=== PATIENT | female | born 1950 | race Caucasian/White ===

== ENCOUNTER 2016-07-07 10:51 | Day surgery (SDC) | payer OTHER ==
[2016-07-07] VITALS (15 sets, daily range): BP systolic 119–150; BP diastolic 81–114; PULSE 70–148; TEMP 97.9
[~2016-07-07] VITALS: Ht 157.5 cm; Wt 63.0 kg
[2016-07-07] MEDS ORDERED: PRIL40 PO (11:51)
[2016-07-07] MEDS ORDERED: PROBIOTIC FORMU1 CAP PO (11:52)
[2016-07-07] MEDS ORDERED: MULTI VITAMINS1 TAB PO (11:52)
[2016-07-07] MEDS ORDERED: CARTIA XT180 MG PO (11:53)
[2016-07-07] MEDS ORDERED: FIBER0.52 GM PO (11:55)
[2016-07-07] MEDS ORDERED: LASIX 40MG TABL40 MG PO (11:56)
[2016-07-07 12:20] LABS: POTASSIUM 4.7 mmol/L (3.4-5.0)
[2016-07-07 12:33] LABS: THYROID STIMULATING HORMONE 1.67 uIU/mL (0.465-4.680)
[2016-07-07] MEDS ORDERED: PRADAXA 150MG150 MG PO (15:09)
[2016-07-07] MEDS ORDERED: PACERONE400 MG PO (15:10)
[2016-07-07] MEDS ORDERED: CORDARONE200 MG/TAB PO ×2 (15:12→15:14)
== END 2016-07-07 17:38 | disposition home or self-care (01) ==
LOC: COL.CAR 10:51
PROVIDERS: Internal Medicine Interventional Cardiology
DX: I08.1 Rheumatic disorders of both mitral and tricuspid valves (principal); I48.91 Unspecified atrial fibrillation; I42.9 Cardiomyopathy, unspecified; R01.1 Cardiac murmur, unspecified; I83.90 Asymptomatic varicose veins of unspecified lower extremity; Z87.891 Personal history of nicotine dependence; R79.1 Abnormal coagulation profile; E78.5 Hyperlipidemia, unspecified; J44.9 Chronic obstructive pulmonary disease, unspecified
CPT/HCPCS: J0282; J2250; J3010; J7030; J7060

== ENCOUNTER 2016-07-11 11:57 | Day surgery (SDC) | payer OTHER ==
[2016-07-11] VITALS (11 sets, daily range): BP systolic 99–136; BP diastolic 59–82; PULSE 41–88; TEMP 97.7
[~2016-07-11] VITALS: Ht 157.6 cm; Wt 65.0 kg
[~2016-07-11 11:57] MED LIST: CARTIA XT180 MG PO; CORDARONE200 MG/TAB PO; FIBER0.52 GM PO; LASIX 40MG TABL40 MG PO; MULTI VITAMINS1 TAB PO; PACERONE400 MG PO; PRADAXA 150MG150 MG PO; PRIL40 PO; PROBIOTIC FORMU1 CAP PO
[2016-07-11 12:35] LABS: HEMATOCRIT 40.5 % (37.0-47.0); HEMOGLOBIN 13.8 g/dl (12.5-16.0); MEAN CELL VOLUME 100 fl (80.0-100.0); MEAN CORPUSCULAR HEMOGLOBIN 34 pg (27.0-31.0); MEAN CORPUSCULAR HGB CONC 34 g/dl (33.0-37.0); MEAN PLATELET VOLUME 8.7 fl (7.4-10.4); PLATELET COUNT 198 K/mm3 (130-400); RED BLOOD COUNT 4.06 M/mm3 (4.10-5.30); WHITE BLOOD COUNT 19.8 K/mm3 (4.8-10.8)
[2016-07-11 12:41] LABS: PROTHROMBIN TIME 10.8 SECONDS (9.7-12.8)
[2016-07-11 12:53] LABS: CREATININE, serum 0.6 mg/dL (0.52-1.25); POTASSIUM 3.7 mmol/L (3.4-5.0)
[2016-07-11] MEDS ORDERED: ASPIRIN 81M81 MG/TA2 PO (17:10)
== END 2016-07-11 20:09 | disposition home or self-care (01) ==
LOC: COL.CAR 11:57
PROVIDERS: Internal Medicine Interventional Cardiology
DX: I48.91 Unspecified atrial fibrillation (principal); I34.0 Nonrheumatic mitral (valve) insufficiency; I25.10 Atherosclerotic heart disease of native coronary artery without angina pectoris; J44.9 Chronic obstructive pulmonary disease, unspecified; E78.5 Hyperlipidemia, unspecified; I42.9 Cardiomyopathy, unspecified; Z87.891 Personal history of nicotine dependence; R00.1 Bradycardia, unspecified
CPT/HCPCS: C1725; C1760; C1769; C1887; C1894; J1644; J2250; J3010; Q9967

== ENCOUNTER 2016-08-29 10:16 | Day surgery (SDC) | payer SELFPAY ==
[~2016-08-29] VITALS: Ht 157.5 cm; Wt 63.6 kg
[~2016-08-29 10:16] MED LIST changes: +ASPIRIN 81M81 MG/TA2 PO
[2016-08-29 10:30] VITALS: BP 122/83; PULSE 84; TEMP 97.1
[2016-08-29 13:06] VITALS: BP 107/75; PULSE 64; TEMP 97.7
[2016-08-29 13:16] LABS: BASO # 0.1 (0.0-0.2); BASO % 0.7 % (0.0-2.0); EOS # 0.2 (0.0-0.7); EOS % 1.6 % (0-4.0); GRAN # 9.7 (1.4-6.5); GRAN % 72.6 % (42.2-75.2); HEMATOCRIT 43.4 % (37.0-47.0); LYMPH # 2.4 (1.2-3.4); LYMPH % 17.6 % (20.0-51.0); MEAN CELL VOLUME 100 fl (80.0-100.0); MEAN CORPUSCULAR HEMOGLOBIN 35 pg (27.0-31.0); MEAN CORPUSCULAR HGB CONC 35 g/dl (33.0-37.0); MEAN PLATELET VOLUME 8.6 fl (7.4-10.4); MONO # 0.9 (0.1-0.6); MONO % 6.7 % (1.7-9.3); PLATELET COUNT 257 K/mm3 (130-400); RED BLOOD COUNT 4.33 M/mm3 (4.10-5.30); REDCELL DISTRIBUTION WIDTH-CV 12.8 % (11.5-14.5); WHITE BLOOD COUNT 13.4 K/mm3 (4.8-10.8)
[2016-08-29 13:36] LABS: ANION GAP 11 mmol/L (7-16); BLOOD UREA NITROGEN 12 mg/dL (7-17); CALCIUM 9.4 mg/dL (8.4-10.2); CARBON DIOXIDE 29 mmol/L (22-30); CHLORIDE 97 mmol/L (98-107); CREATININE, serum 0.61 mg/dL (0.52-1.25); GLUCOSE 92 mg/dL (74-106); POTASSIUM 3.1 mmol/L (3.4-5.0); SODIUM 137 mmol/L (137-145)
[2016-08-29 13:48] LABS: B-TYPE NATRIURETIC PEPTIDE 1480 pg/mL (0-125)
[2016-08-29 13:49] LABS: TROPONIN-I < 0.012 ng/mL (0.000-0.034)
== END 2016-08-29 17:34 | disposition home or self-care (01) ==
LOC: MEDICAL 10:16 → UNDOADMIN 10:16 → SDCO 10:16 → EDSTATUS 15:54 → SDCO 17:34 → MEDICAL 17:34
PROVIDERS: Internal Medicine Interventional Cardiology
DX: I08.1 Rheumatic disorders of both mitral and tricuspid valves (principal); I48.92 Unspecified atrial flutter; I50.9 Heart failure, unspecified; I48.91 Unspecified atrial fibrillation; J44.9 Chronic obstructive pulmonary disease, unspecified; Z90.49 Acquired absence of other specified parts of digestive tract; Z90.710 Acquired absence of both cervix and uterus; Z87.891 Personal history of nicotine dependence
CPT/HCPCS: OP; J1940

== ENCOUNTER 2021-06-09 10:00 | Inpatient (IN) | payer MEDICARE ==
[~2021-06-09] VITALS: Ht 152.4 cm; Wt 53.2 kg
[~2021-06-09 10:00] MED LIST changes: -PROBIOTIC FORMU1 CAP PO; +PROBIOTIC-MAJOR PO
[2021-07-25] VITALS (876 sets, daily range): BP systolic 76–96; BP diastolic 50–72; PULSE 60–80; TEMP 97.5–98.6; O2SAT 73–100
[2021-07-25 09:31] LABS: CREATININE, serum 0.64 mg/dL (0.57-1.11); MAGNESIUM 2.1 mg/dL (1.6-2.6)
[2021-07-25 09:39] LABS: POTASSIUM 2.5 mmol/L (3.5-4.5)
--- NOTE | 2021-07-25 09:54 | NUR ---
SW met with patient to complete intake. Patient reports that she lives at home with her Teto ([phone]) in [place]. Patient reports that her is not a good support system for her. States " he makes me clean the house, cook my meals and won't help take care of me". She goes on to say that she would like to move out but only makes $200.00 a month on SS/ Disability. Patient has [facility] that comes in to help with showering and other ADL's becuase she cannot do them without getting "dizzy". She also states that [facility] is supposed to come in and help in her home but "no one shows up". Patient utilizes a walker to assist with mobility and is on 4L of NC oxygen 04/09 that is supplied through [facility] in [place]. Patient see's Dr. Al in [place] and utilizes [facility] in [place] for perscription needs. Patient does not have a DPOA-HC established but is interested in creating one because " my doesn't care if i ". DPOA-HC form provided to the patient along with education. Patient verbalized she would like to think about who she would like to put down. She has no children but does have a brother that brought her down here.
--- NOTE | 2021-07-25 10:01 | NUR ---
Initial visit; Patient thanked Manufacturing Machine Operator for looking in on her and wishing her well. Patient declined spiritual care.
[2021-07-25 10:43] LABS: BASO # 0.1 K/mm3 (0.0-0.2); BASO % 0.6 % (0.0-2.0); EOS # 0.1 K/mm3 (0.0-0.7); GRAN # 8.6 K/mm3 (1.4-6.5); GRAN % 86.4 % (42.2-75.2); LYMPH # 0.6 K/mm3 (1.2-3.4); LYMPH % 5.9 % (20.0-51.0); MEAN CELL VOLUME 79 fl (80.0-100.0); MEAN CORPUSCULAR HGB CONC 33 g/dl (33.0-37.0); MEAN PLATELET VOLUME 11.5 fl (7.4-10.4); MONO # 0.5 K/mm3 (0.1-0.6); MONO % 5.5 % (1.7-9.3); PLATELET COUNT 183 K/mm3 (130-400)
[2021-07-25 10:46] LABS: HEMATOCRIT 28.6 % (37.0-47.0); HEMOGLOBIN 9.4 g/dl (12.5-16.0); MEAN CORPUSCULAR HEMOGLOBIN 26 pg (27-31)
[2021-07-25 10:55] LABS: ARTERIAL BLD GAS O2 SATURATION 92.8 % (92-100); ARTERIAL BLD GAS TCO2 CT 33.4; ARTERIAL BLOOD GAS BASE EXCESS 8.8 (-2-2); ARTERIAL BLOOD GAS HCO3 32.2 meq/L (22-26); ARTERIAL BLOOD GAS PCO2 39.1 mmHg (35-45); ARTERIAL BLOOD GAS PO2 64.2 mmHg (80-100); ARTERIAL BLOOD GAS pH 7.53 (7.35-7.45)
[2021-07-25] MEDS ORDERED: LINZESS145CAP PO (13:48)
[2021-07-25] MEDS ORDERED: CARDIZEM HC90 MG/CAP PO (13:49)
[2021-07-25] MEDS ORDERED: BROVANA15 MCG/2 M IH (13:52)
[2021-07-25] MEDS ORDERED: YUPELRI175 MCG/3 IH (13:52)
[2021-07-25] MEDS ORDERED: PULMICORT0.5 MG/2 M IH (13:53)
[2021-07-25 16:29] LABS: CALCIUM 9.1 mg/dL (8.4-10.2); CREATININE, serum 0.64 mg/dL (0.57-1.11); POTASSIUM 3.7 mmol/L (3.5-4.5)
[2021-07-25 19:05] LABS: MUCOUS Present (NOT PRESENT); PH 9 (5-8); SQUAMOUS EPITHELIAL None Seen /hpf (0-10); URINE APPEARANCE Clear (CLEAR/HAZY); URINE BACTERIA None Seen /hpf (NONE SEEN); URINE BILIRUBIN Negative (NEGATIVE); URINE BLOOD Negative (NEGATIVE); URINE COLOR Straw (YELLOW); URINE GLUCOSE Negative (NEGATIVE); URINE KETONE Negative (NEGATIVE); URINE LEUKOCYTE ESTERASE Negative (NEGATIVE); URINE NITRATE Negative (NEGATIVE); URINE PROTEIN(semi-quant) Negative (NEGATIVE); URINE RBC None Seen /hpf (0-2); URINE UROBILINOGEN Negative (NEGATIVE); URINE WBC 0-2 /hpf (0-2)
--- NOTE | 2021-07-25 19:36 | NUR ---
Assessment complete and charted. Patient resting in bed alert and orientated x4. Denies needs at this time. Call light in reach.
[2021-07-25 20:03] LABS: COLLECTION METHOD CLEAN CATCH
[2021-07-25 20:21] LABS: OSMOLALITY-URINE random 129 Osm/kg (50-1200)
[2021-07-25 20:47] LABS: CALCIUM 8.8 mg/dL (8.4-10.2); CREATININE, serum 0.62 mg/dL (0.57-1.11); POTASSIUM 4.2 mmol/L (3.5-4.5)
[2021-07-26] VITALS (686 sets, daily range): BP systolic 79–106; BP diastolic 52–90; PULSE 45–82; TEMP 97.4–98; O2SAT 75–100
[2021-07-26 01:13] LABS: CALCIUM 8.3 mg/dL (8.4-10.2); CREATININE, serum 0.56 mg/dL (0.57-1.11); POTASSIUM 3.9 mmol/L (3.5-4.5)
[2021-07-26 05:49] LABS: BASO # 0.1 K/mm3 (0.0-0.2); BASO % 0.8 % (0.0-2.0); EOS # 0.1 K/mm3 (0.0-0.7); EOS % 0.9 % (0.0-4.0); GRAN # 6.4 K/mm3 (1.4-6.5); GRAN % 81.3 % (42.2-75.2); LYMPH # 0.8 K/mm3 (1.2-3.4); LYMPH % 9.5 % (20.0-51.0); MEAN CELL VOLUME 80 fl (80.0-100.0); MEAN CORPUSCULAR HGB CONC 32 g/dl (33.0-37.0); MEAN PLATELET VOLUME 11.2 fl (7.4-10.4); MONO # 0.5 K/mm3 (0.1-0.6); MONO % 6.9 % (1.7-9.3); PLATELET COUNT 152 K/mm3 (130-400); RED BLOOD COUNT 3.11 M/mm3 (4.10-5.30)
--- NOTE | 2021-07-26 05:50 | NUR ---
PATIENT REPORTS NAUSEA THIS AM. GIVEN PRN ZOFRAN
[2021-07-26 05:53] LABS: HEMATOCRIT 24.8 % (37.0-47.0); MEAN CORPUSCULAR HEMOGLOBIN 26 pg (27-31)
[2021-07-26 06:12] LABS: CALCIUM 8.2 mg/dL (8.4-10.2); CREATININE, serum 0.55 mg/dL (0.57-1.11); MAGNESIUM 1.9 mg/dL (1.6-2.6)
--- NOTE | 2021-07-26 07:00 | NUR ---
PT RESTING IN BED WATCHING TV. VSS. PT DENIES NEEDS AT THIS TIME. CALL LIGHT WITHIN REACH.
--- NOTE | 2021-07-26 07:17 | NUR ---
Report given to BLAYNE Mcbride
--- NOTE | 2021-07-26 14:51 | NUR ---
Report called to Kendra CISNEROS. All questions answered. Pt packed up and transfered to room 316.
--- NOTE | 2021-07-26 15:23 | NUR ---
Patient arrived to the floor from ICU, A&Ox4 and a SBA. Arrived via WC. Patient on 4L O2 via HFNC.
--- NOTE | 2021-07-26 17:21 | NUR ---
Right sided thoracentesis completed by Dr. Jin, this RN assisted. Patient tolerated the procedure well. 1000mL fluid drained by Dr. Jin. Radiology called to completed a CXR.
[2021-07-26 17:46] LABS: PLEURAL FLUID RBC 3000 /mm3 (0-0); PLEURAL FLUID WBC 101 /mm3
[2021-07-26 17:50] LABS: PLEURAL FLUID APPEARANCE CLEAR; PLEURAL FLUID COLOR YELLOW
--- NOTE | 2021-07-26 23:55 | NUR ---
Pt alert and oriented, resting queitly. Calm and follows commands. Reports pain the BLE. Pt has dulce bandage wraps applied to the BLE. Pt requested they be taken off. The day shift RN and I educated the pt on the importance of keeping the bandages on the BLE. Bandages were taken off for approximately 1 hour and then re-applied. Prn tylenol administered for pain. Continuing with tikosyn administration. Shift assessment performed. Medications administered per orders and education provided. VS stable. Pt satting WNL on 4L NC. Thoracentesis site on right back side is clean and dry, covered with bandage. No swelling/redness around site. Small red dot of drainage noted on dressing. Pt is a little SOB when OOB, but does not wheeze or become dyspneic. Pt up to void with stanby assistance and tolerated. RUPA restiction enforced for PICC line. 2+ edema noted in the BLE. Monitoring neuro checks q4hr. Pt does not report any questions at this time, will continue to monitor.
[2021-07-27] VITALS (140 sets, daily range): BP systolic 81–103; BP diastolic 47–73; PULSE 65–149; TEMP 97.3–97.9; O2SAT 84–100
--- NOTE | 2021-07-27 05:15 | NUR ---
No adverse events overnight. Pt remains alert and oriented, resting quietly. Denies pain this morning. Prn tylenol administered x2 overnight for back and BLE pain. Yoandy bandages remain on BLE. Encouraged pt to elevate BLE on pillow. VS stable. Pt remains on 5L NC. BP runs softer overnight, pt denies dizziness/lightheadedness. Thoracentesis site on right side remains clean/dry. No edema/swelling/redness around site. Pt states she feels SOB has improved overall. States she feels less SOB when up ambulating. Continuing to assess neuro checks q4hr. Pt tolerated PO overnight. Pt does not report any concerns at this time, will continue to monitor.
[2021-07-27 06:48] LABS: BASO # 0.1 K/mm3 (0.0-0.2); BASO % 1.5 % (0.0-2.0); EOS # 0.1 K/mm3 (0.0-0.7); EOS % 1.4 % (0.0-4.0); GRAN # 4.4 K/mm3 (1.4-6.5); GRAN % 73.9 % (42.2-75.2); LYMPH # 0.9 K/mm3 (1.2-3.4); LYMPH % 14.9 % (20.0-51.0); MEAN CELL VOLUME 81 fl (80.0-100.0); MEAN CORPUSCULAR HGB CONC 32 g/dl (33.0-37.0); MEAN PLATELET VOLUME 10.1 fl (7.4-10.4); MONO # 0.5 K/mm3 (0.1-0.6); MONO % 7.8 % (1.7-9.3); PLATELET COUNT 165 K/mm3 (130-400); RED BLOOD COUNT 3.25 M/mm3 (4.10-5.30); REDCELL DISTRIBUTION WIDTH-CV 16.1 % (11.5-14.5)
[2021-07-27 07:11] LABS: HEMATOCRIT 26.4 % (37.0-47.0); HEMOGLOBIN 8.4 g/dl (12.5-16.0); MEAN CORPUSCULAR HEMOGLOBIN 26 pg (27-31)
[2021-07-27 07:13] LABS: CALCIUM 8.5 mg/dL (8.4-10.2); CREATININE, serum 0.57 mg/dL (0.57-1.11); MAGNESIUM 1.8 mg/dL (1.6-2.6)
--- NOTE | 2021-07-27 10:07 | NUR ---
Patient sitting in bed upon entering the room, PCT assist the patient with getting prepared for a shower. Patient wanting to put on compression stockings instead of the ASTRID wraps that are currently present on the patient's legs. Patient does not like them. Waiting for Dr. Nazario, since this is a written order from him. Otherwise, patient has no concerns. Call light is w/in reach.
[2021-07-27 14:18] LABS: PLEURAL FLUID RBC 0 /mm3 (0-0); PLEURAL FLUID WBC 121 /mm3
[2021-07-27 14:19] LABS: PLEURAL FLUID APPEARANCE CLEAR; PLEURAL FLUID COLOR YELLOW
--- NOTE | 2021-07-27 15:57 | NUR ---
Continuous Miner Operator Helper contacted Hospitalist and requested PT/OT orders. SW contacted [facility] and faxed clinical updates. Discharge Plan: Home with [facility]
[2021-07-27 17:25] LABS: BODY FLUID PH (AMS) 8 (())
--- NOTE | 2021-07-27 17:31 | NUR ---
Patient had left sided thoracentesis down in radiology, tolerated this well. Patient has a new skin tear on the left arm from tape being removed. Petroleum gauze was applied along w/ non-adhesive gauze and then wrapped with kerlix to keep both gauzes in place. Patient c/o pain in her right side, PRN tylenol given.
--- NOTE | 2021-07-27 18:14 | NUR ---
Patient called stating that she was dizzy and just didn't feel right. BP was 83/47 and patient was satting 77% on 4L O2 via HFNC. Charge nurse notified, RT notified, Dr. Horvath notified. Oxymask was placed and patient was put on 15L, patient's saturations began going up, eventually ending up at 100%. Oxygen was then titrated down. Once patient was satting at 98% on 6L, patient was transitioned back to HFNC at 4L. Patient is now at 97%. 500mL NS bolus was started per Dr. Horvath's orders. Ordered labs were drawn via PICC by this RN. Radiology was call for repeat CXR as patient had a thoracentesis this afternoon. After getting patient's oxygen levels back to a normal range, patiet began feeling much better. Bolus to run for 30mins. Patient remains A&Ox4.
[2021-07-27 18:45] LABS: CALCIUM 8.5 mg/dL (8.4-10.2); CREATININE, serum 0.63 mg/dL (0.57-1.11); MAGNESIUM 1.7 mg/dL (1.6-2.6); POTASSIUM 3.8 mmol/L (3.5-4.5)
--- NOTE | 2021-07-27 20:24 | NUR ---
At shift change pt was finishing 500 ml NS bolus d/t low BP/dizziness/nausea. Pt was satting on WNL on 5L NC. BP began to increase post bolus to 95/67, then 101/72 with HR in the 70's. Pt denies chest pain/SOB at that time. Complained of back and abdominal pain, but no nausea after zofran was administered. Around 1944, telemetry called to report a HR of 150. Immediately went to pt's room and obtained a set of VS. BP was 81/60 and HR was at 148, oxygen sats were WNL on 5L NC. Pt began to complain of left sided chest pain and still reported lightheadedness. Immediately notified hospitalist. Hospitalist ordered stat EKG and to notify alfalfa dehydrator operator provider. Notified Dr. Nazario while EKG was being ran. EKG showed SVT. Dr. Nazario ordered for the tikosyn to be d/c'd and put in a verbal telephone order for amiodorane gtt at 1mg/min continuously. Notified boiler house inspector of order. Verified with Dr. Nazario of pt's allx to amiodorane and he was okay with still administering the medication. Notified hospitalist of update. Hospitalist ordered a 500 ml bolus of NS to be ran for low BP's. Bolus was began and VS are being taken every 15 mins. BP at 2014 increased to 94/73 and HR is 146. Amiodarone gtt will be began at 2034. VS will be continuously taken per protocol. Will continue to monitor pt.
--- NOTE | 2021-07-27 22:39 | NUR ---
Pt alert and oriented. Moved down to ICU around 2129. Report given to CLINICAL RESEARCH SCIENTIST. Pt VS 93/62, HR 73, O2 94% on 5L NC at 2129. Pt no longer reported chest pain, did state she still felt palpatations, but they had improved. No new complaints of nausea/vomiting. Skin pale. Shift assessment had been performed. New ordered medications administered per orders and education provided. Amiodarone gtt started at 2034 at 34.5 ml/hr. VS monitored q15 min. Q4 neuro checks assessed. Pt up to void prior to moving to ICU. Pt moved to ICU and transfered over with ICU staff. No new changes at this time.
[2021-07-28] VITALS (642 sets, daily range): BP systolic 94–115; BP diastolic 56–78; PULSE 60–89; TEMP 97.4–99.1; O2SAT 42–100
--- NOTE | 2021-07-28 00:12 | NUR ---
RECIEVED PHONE CALL FROM BOBY HERNANDEZ TO NOTIFY DR. MINAYA OF PT'S SYSTOLIC BP RUNNING IN 80'S TO SEE IF HE WOULD LIKE ANYTHING ELSE DONE FOR HER. MAP ALWAYS >65 AND PT IS ASYMPTOMATIC. HISTORICALLY DURING THIS VISIT BP'S HAVE BEEN RUNNING IN THIS RANGE. LEFT CALLBACK NUMBER ON DR. GOLDBERG'S PAGER.
[2021-07-28 06:35] LABS: BASO # 0.1 K/mm3 (0.0-0.2); BASO % 1.3 % (0.0-2.0); EOS # 0.2 K/mm3 (0.0-0.7); EOS % 3.2 % (0.0-4.0); GRAN # 4.8 K/mm3 (1.4-6.5); GRAN % 76.8 % (42.2-75.2); LYMPH # 0.7 K/mm3 (1.2-3.4); LYMPH % 11.7 % (20.0-51.0); MEAN CELL VOLUME 83 fl (80.0-100.0); MEAN CORPUSCULAR HGB CONC 31 g/dl (33.0-37.0); MEAN PLATELET VOLUME 10.7 fl (7.4-10.4); MONO # 0.4 K/mm3 (0.1-0.6); MONO % 6.4 % (1.7-9.3); PLATELET COUNT 166 K/mm3 (130-400); RED BLOOD COUNT 3.35 M/mm3 (4.10-5.30); REDCELL DISTRIBUTION WIDTH-CV 16.1 % (11.5-14.5)
[2021-07-28 06:54] LABS: CALCIUM 8.4 mg/dL (8.4-10.2); CREATININE, serum 0.63 mg/dL (0.57-1.11); MAGNESIUM 1.6 mg/dL (1.6-2.6); POTASSIUM 3.4 mmol/L (3.5-4.5)
--- NOTE | 2021-07-28 07:00 | NUR ---
BEDSIDE REPORT RECEIVED FROM BLAYNE MEMBRENO. PT ALERT AND ORIENTED THIS AM. COMPLAINS OF BACK PAIN FROM THORACENTESIS. WAS GIVEN TYLENOL AT 0530 FOR PAIN. WARM BLANKET OFFERED; PT STATED SHE'S OKAY WITHOUT IT. WILL GIVE TYLENOL THIS AM WHEN ABLE TO.
[2021-07-28 07:30] LABS: HEMATOCRIT 27.9 % (37.0-47.0); HEMOGLOBIN 8.7 g/dl (12.5-16.0); MEAN CORPUSCULAR HEMOGLOBIN 26 pg (27-31)
[2021-07-28 10:58] LABS: ARTERIAL BLD GAS O2 SATURATION 93.1 % (92-100); ARTERIAL BLD GAS TCO2 CT 26.4; ARTERIAL BLOOD GAS BASE EXCESS 1.5 (-2-2); ARTERIAL BLOOD GAS HCO3 25.3 meq/L (22-26); ARTERIAL BLOOD GAS PCO2 36.6 mmHg (35-45); ARTERIAL BLOOD GAS PO2 65.5 mmHg (80-100); ARTERIAL BLOOD GAS pH 7.46 (7.35-7.45)
--- NOTE | 2021-07-28 20:15 | NUR ---
PT ADMITTED TO ROOM 314 FROM ICU 4. A&OX4. RESTING IN BED. NO NEEDS AT THIS TIME.
--- NOTE | 2021-07-28 21:47 | NUR ---
PT UP TO BR WITH ASSIST. WEAK GAIT. PT DYSPNEIC W/ ACTIVITY. O2 4L NC. NEURO CHECK WNL.
[2021-07-29] VITALS (9 sets, daily range): BP systolic 90–111; BP diastolic 49–87; PULSE 64–87; TEMP 97.7–98.5
[2021-07-29 07:34] LABS: BASO # 0.1 K/mm3 (0.0-0.2); EOS # 0.1 K/mm3 (0.0-0.7); EOS % 1.3 % (0.0-4.0); GRAN # 6.1 K/mm3 (1.4-6.5); GRAN % 79.2 % (42.2-75.2); LYMPH # 0.8 K/mm3 (1.2-3.4); LYMPH % 10.6 % (20.0-51.0); MEAN CELL VOLUME 85 fl (80.0-100.0); MEAN CORPUSCULAR HGB CONC 31 g/dl (33.0-37.0); MEAN PLATELET VOLUME 10.6 fl (7.4-10.4); MONO # 0.6 K/mm3 (0.1-0.6); MONO % 7.4 % (1.7-9.3); PLATELET COUNT 159 K/mm3 (130-400); RED BLOOD COUNT 3.28 M/mm3 (4.10-5.30); REDCELL DISTRIBUTION WIDTH-CV 16.2 % (11.5-14.5)
[2021-07-29 07:48] LABS: HEMATOCRIT 27.9 % (37.0-47.0); HEMOGLOBIN 8.5 g/dl (12.5-16.0); MEAN CORPUSCULAR HEMOGLOBIN 26 pg (27-31)
[2021-07-29 08:00] LABS: CALCIUM 8.5 mg/dL (8.4-10.2); CREATININE, serum 0.62 mg/dL (0.57-1.11); POTASSIUM 4.8 mmol/L (3.5-4.5)
--- NOTE | 2021-07-29 08:50 | NUR ---
Left upper arm PICC present and intact. coban present. coban is too tight. dressing change done to previous skin tear below elbow. 1/2 inch slight open area noted with no signs of infection. adaptic, telfa, and talat applied.
--- NOTE | 2021-07-29 09:14 | NUR ---
ECHO and CXR completed this morning. Patient A&Ox4, remains on 4L O2 via HFNC, which is her baseline at home. Patient NPO this morning for possible EGD this afternoon. Patient denies any concerns at this time. Skin tear on the left arm redressed and appears to be healing well. Call light w/in reach.
--- NOTE | 2021-07-29 17:14 | NUR ---
Patient had EGD, tolerated it well. Remains on 4L O2. Patient denying any pain, appears to be doing well.
[2021-07-30 00:25] VITALS: BP 103/62; PULSE 76; TEMP 98.1
--- NOTE | 2021-07-30 00:40 | NUR ---
Pt alert and oriented, calm, follows commands. Denies chest pain/SOB. Denies lightheadedness. Respirations are shallow, but within the 16-18 range. Pt remains on 5L NC, satting in 90's. Medications administered per orders and education provided. Shift assessment performed. VS stable, BP runs softer but pt does not report any dizziness/nausea/vomiting. Pt reports she feels constipated, notified provider and asked if a stool softner could be ordered. Pedrito hose remain on pt's BLE. BLE have 1+ edema, more notably in the feet. Pt was up to void and reported having a very small BM. PICC line in the RUPA is clean/dry/intact. RUPA restriction enforced. Enforcing a no free water restriction. HR is in the 70's. Pt does not report any questions at this time, will continue to monitor.
[2021-07-30 04:56] VITALS: BP 99/65; PULSE 78; TEMP 97.8
[2021-07-30 06:59] VITALS: BP 92/54; PULSE 87; TEMP 97.5
--- NOTE | 2021-07-30 07:17 | NUR ---
No adverse events overnight. Pt remains alert and oriented, follows commands. Denies chest pain this morning. Denies lightheadedness. Reports feeling like she needs to "catch her breath" before taking medications. Resting currently. VS stable. Satting WNL on 5L NC. BP still runs softer, but is stable. HR in 70's, NSR. Tolerated PO. Continuing with free water restriction. Adequate urine output overnight. Pt does not report any questions at this time, will continue to monitor.
[2021-07-30 07:33] LABS: BASO # 0.1 K/mm3 (0.0-0.2); BASO % 0.8 % (0.0-2.0); EOS # 0.2 K/mm3 (0.0-0.7); EOS % 2.3 % (0.0-4.0); GRAN # 6.1 K/mm3 (1.4-6.5); GRAN % 77.2 % (42.2-75.2); LYMPH # 0.8 K/mm3 (1.2-3.4); LYMPH % 10.1 % (20.0-51.0); MEAN CELL VOLUME 82 fl (80.0-100.0); MEAN CORPUSCULAR HGB CONC 32 g/dl (33.0-37.0); MEAN PLATELET VOLUME 10.2 fl (7.4-10.4); MONO # 0.7 K/mm3 (0.1-0.6); MONO % 9.1 % (1.7-9.3); PLATELET COUNT 139 K/mm3 (130-400); RED BLOOD COUNT 3.24 M/mm3 (4.10-5.30); REDCELL DISTRIBUTION WIDTH-CV 16.3 % (11.5-14.5)
[2021-07-30 07:36] LABS: HEMATOCRIT 26.6 % (37.0-47.0); HEMOGLOBIN 8.4 g/dl (12.5-16.0); MEAN CORPUSCULAR HEMOGLOBIN 26 pg (27-31)
[2021-07-30 07:50] LABS: CALCIUM 8.4 mg/dL (8.4-10.2); CREATININE, serum 0.63 mg/dL (0.57-1.11); POTASSIUM 4.3 mmol/L (3.5-4.5)
--- NOTE | 2021-07-30 09:04 | NUR ---
PT RESTING IN BED. MORNING MEDICATIONS GIVEN. SHIFT ASSESSMENT COMPLETED. PT DENIES ANY PAIN OR NEEDS AT THIS TIME. EDEMA NOTED TO BLE, ALETA MCCARTHY IN PLACE. PT CURRENTLY ON 5L VIA VA. PT STATES SHE HASN'T HAD A BM YET. WILL CONTINUE TO MONITOR.
[2021-07-30 11:14] VITALS: BP 95/57; PULSE 76; TEMP 97.8
[2021-07-30 15:22] VITALS: BP 102/62; PULSE 85; TEMP 97.6
[2021-07-30] MEDS ORDERED: GOOD NEIGH1200 MG/15 PO (15:37)
[2021-07-30 20:55] VITALS: BP 95/64; PULSE 96; TEMP 97.7
[2021-07-31] VITALS (7 sets, daily range): BP systolic 84–115; BP diastolic 55–78; PULSE 79–87; TEMP 97.2–98.7
--- NOTE | 2021-07-31 08:24 | NUR ---
PT RESTING IN BED. MORNING MEDICATIONS GIVEN. SHIFT ASSESSMENT COMPLETED. PT STATES SHE FEELS HER BREATHING HAS BEEN IMPROVED. PT DENIES HAVING A BM AFTER RESTARTING MILK OF MAGNESIA. REQUESTING A SHOWER THIS AM. DENIES ANY PAIN OR NEEDS AT THIS TIME. PICC LINE FLUSHES AND HAS GOOD BLOOD RETURN. WILL CONTINUE TO MONITOR.
--- NOTE | 2021-07-31 08:36 | NUR ---
SPO2 85% ON 5 LPM NC JUST BACK WITH PT. INCREASED TO 6 LPM NC SLOWLY REACHED 92%
[2021-07-31 11:32] LABS: BASO # 0.1 K/mm3 (0.0-0.2); BASO % 0.6 % (0.0-2.0); EOS % 0.1 % (0.0-4.0); GRAN # 7.3 K/mm3 (1.4-6.5); GRAN % 82.8 % (42.2-75.2); LYMPH # 0.6 K/mm3 (1.2-3.4); LYMPH % 6.8 % (20.0-51.0); MEAN CELL VOLUME 82 fl (80.0-100.0); MEAN CORPUSCULAR HGB CONC 32 g/dl (33.0-37.0); MONO # 0.8 K/mm3 (0.1-0.6); MONO % 9.1 % (1.7-9.3); PLATELET COUNT 124 K/mm3 (130-400); RED BLOOD COUNT 3.33 M/mm3 (4.10-5.30); REDCELL DISTRIBUTION WIDTH-CV 16.4 % (11.5-14.5)
[2021-07-31 11:33] LABS: HEMATOCRIT 27.3 % (37.0-47.0); HEMOGLOBIN 8.6 g/dl (12.5-16.0); MEAN CORPUSCULAR HEMOGLOBIN 26 pg (27-31)
[2021-07-31 11:46] LABS: CALCIUM 8.5 mg/dL (8.4-10.2); CREATININE, serum 0.61 mg/dL (0.57-1.11); POTASSIUM 4.4 mmol/L (3.5-4.5)
[2021-08-01 04:23] VITALS: BP 76/49; PULSE 78; TEMP 98.2
[2021-08-01 05:35] VITALS: BP 86/58; PULSE 81
[2021-08-01 07:03] VITALS: BP 86/58; PULSE 78; TEMP 97.4
--- NOTE | 2021-08-01 11:05 | NUR ---
PT RESTING IN BED. MORNING MEDICATIONS GIVEN. SHIFT ASSESSMENT COMPLETED. PT DENIES ANY PAIN OR NEEDS AT THIS TIME. CURRENTLY ON BASELINE OF 4L VIA NC. PT DID HAVE MULTIPLE EPISODES OF LOOSE STOOLS THIS MORNING, PT STATES IT IS BECAUSE OF MILK OF MAGNESIA, MORNING DOSE HELD, WILL CONTINUE TO MONITOR.
[2021-08-01 12:19] LABS: ALBUMIN 2.8 gm/dL (3.4-4.8); CALCIUM 8.4 mg/dL (8.4-10.2); CREATININE, serum 0.69 mg/dL (0.57-1.11); PHOSPHOROUS 3.2 mg/dL (2.3-4.7); POTASSIUM 4.6 mmol/L (3.5-4.5)
[2021-08-01 12:21] LABS: BASO # 0.1 K/mm3 (0.0-0.2); BASO % 0.7 % (0.0-2.0); EOS % 0.1 % (0.0-4.0); GRAN # 5.8 K/mm3 (1.4-6.5); GRAN % 80.2 % (42.2-75.2); LYMPH # 0.7 K/mm3 (1.2-3.4); MEAN CELL VOLUME 81 fl (80.0-100.0); MEAN CORPUSCULAR HGB CONC 32 g/dl (33.0-37.0); MEAN PLATELET VOLUME 10.5 fl (7.4-10.4); MONO # 0.7 K/mm3 (0.1-0.6); MONO % 9.3 % (1.7-9.3); PLATELET COUNT 124 K/mm3 (130-400); RED BLOOD COUNT 3.22 M/mm3 (4.10-5.30); REDCELL DISTRIBUTION WIDTH-CV 16.3 % (11.5-14.5)
[2021-08-01 12:24] VITALS: BP 95/61; PULSE 83; TEMP 97.4
[2021-08-01 12:28] LABS: HEMATOCRIT 26.1 % (37.0-47.0); HEMOGLOBIN 8.3 g/dl (12.5-16.0); MEAN CORPUSCULAR HEMOGLOBIN 26 pg (27-31)
--- NOTE | 2021-08-01 12:55 | NUR ---
REPORT GIVEN TO BLAYNE GRACIA.
--- NOTE | 2021-08-01 14:25 | NUR ---
Catering Director faxed clinical updates to [facility]. SW met with patient to review discharge plan. Patient advised she is having a procedure tomorrow and depending on the results, she may be transferred to [facility].
[2021-08-01 15:30] VITALS: BP 94/65; PULSE 85; TEMP 98.3
[2021-08-01 19:30] VITALS: BP 102/65; PULSE 83; TEMP 98
--- NOTE | 2021-08-01 23:48 | NUR ---
Pt alert and oriented, resting quietly. Follows commands. Pt currently denies chest pain/SOB. Reported a headache and cough. Administered prn tylenol and provider ordered prn tessalon pearles, which I administered. Shift assessment performed. Medications administered per orders and education provided. Continuing with q4 neuro assessments and drywall sander remains on. VS stable. BP continues to run softer, but pt denies dizziness/lightheadedness. NSR, HR in 80's. Afebrile. Pt satting 94% on 5L NC currently. Will titrate per orders. PICC line clean/dry/intact in RUPA. No significant skin issues. Noted small skin tear on left arm. Open to air and dry. Pt has 1+ edema in the BLE/feet. Pedrito hose remain on and continuing to encourage pt to ambulate when possible. Pt reported at the beginning of the shift that she was feeling a little "short of air". We pulled the pt up in bed, because she was low and slouched over, and increased her o2 from 4L to 5L and the pt reported immediate relief of SOB. Pt will be NPO 0000. Ordered milk of magnesia was held this evening per pt request bc she reports having diarrhea. Pt does not have any questions at this time, will continue to monitor.
[2021-08-02] VITALS (14 sets, daily range): BP systolic 82–105; BP diastolic 42–76; PULSE 16–147; TEMP 97.5–98.2
--- NOTE | 2021-08-02 02:30 | NUR ---
Pt reported she was feeling like she "couldn't catch her breath". Pt did not notably look in respiratory distress. We scooted the pt up in bed and I increased her 02 to 5L NC (from 4L). Pt was satting at 89% on the 4L, but does seem to desat when she speaks. Pt went up to 92% on 5L. Notified ARASH Rodriguez who ordered for a duoneb. Notified respiratory therapy of the new order. Pt reports relief from being scooted up and the oxygen being increased. Will continue to monitor.
--- NOTE | 2021-08-02 04:42 | NUR ---
No adverse events overnight. Pt remains alert and oriented, follows commands. Resting quietly. Pt reported "difficulty catching my breath" at one time over the evening. We repositioned the pt and increased her o2 to 5L NC. The provider was contacted and she ordered duonebs. Respiratory was notified. Pt reports relief since being repositioned and the duo neb was given. Pt denies pain currently. No SOB/diaphoresis noted. Pt denies dizziness. VS stable. BP continues to run softer. HR is NSR. O2 WNL on 4L NC currently. Pt has been NPO since 0000. Pt does not report any questions at this time, raul continue to monitor.
[2021-08-02 07:28] LABS: BASO # 0.1 K/mm3 (0.0-0.2); BASO % 0.7 % (0.0-2.0); EOS % 0.4 % (0.0-4.0); GRAN # 5.3 K/mm3 (1.4-6.5); GRAN % 73.7 % (42.2-75.2); LYMPH % 13.5 % (20.0-51.0); MEAN CELL VOLUME 83 fl (80.0-100.0); MEAN CORPUSCULAR HGB CONC 31 g/dl (33.0-37.0); MEAN PLATELET VOLUME 10.6 fl (7.4-10.4); MONO # 0.8 K/mm3 (0.1-0.6); MONO % 11.1 % (1.7-9.3); PLATELET COUNT 104 K/mm3 (130-400); REDCELL DISTRIBUTION WIDTH-CV 16.6 % (11.5-14.5)
[2021-08-02 07:38] LABS: HEMATOCRIT 25.7 % (37.0-47.0); MEAN CORPUSCULAR HEMOGLOBIN 26 pg (27-31)
[2021-08-02 07:59] LABS: ALBUMIN 2.8 gm/dL (3.4-4.8); CALCIUM 8.5 mg/dL (8.4-10.2); CREATININE, serum 0.65 mg/dL (0.57-1.11); PHOSPHOROUS 3.6 mg/dL (2.3-4.7)
--- NOTE | 2021-08-02 08:00 | NUR ---
Patient is resting in bed complaining of SOB, VSS, with 5 L O2 NC AND 92% SAT. Soft BP. Assessment completed, morning meds provided. No other needs at this time, waiting for ALEJANDRO this morning.
--- NOTE | 2021-08-02 11:35 | NUR ---
Patient leave room for procedure.
--- NOTE | 2021-08-02 13:19 | NUR ---
Patient came back to the unit after procedure, alert and oriented x 4, soft blood pressure 103/66, 5 L O2 NC and sat 92%. Continue monitoring.
--- NOTE | 2021-08-02 14:34 | NUR ---
The hospitalist would like the patient to be screened by [facility]. GERRI contacted and faxed a referral to Ottoniel at [facility]. Awaiting screen.
--- NOTE | 2021-08-02 15:49 | NUR ---
Ottoniel, at [facility], reports that the patient meets criteria and that he will be up to the hospital tomorrow to meet with the patient. SW to update the clinical team.
--- NOTE | 2021-08-02 18:55 | NUR ---
Patient has been with no chain in VSS after procedure. Continues complaining of SOB but has a saturation of 90-94% with 4.5 L O2 NC. She feels cold all the time, her temp is being WNL. Report will be given to night Nurse.
--- NOTE | 2021-08-02 22:08 | NUR ---
CALLED HOSPITALIST AROUND 2206 RECEIVED CALL FROM TELE PATIETN HR 147 A-FIB AND PATIENT STATED SHE WAS HAVING SOME SOB AND DENIES CHEST PAIN HR 148 ON TELE PENDING EKG CALLED RESPIRATORY. INFORMED BP 98/76. HOSPITALIST TO FOLLOW UP WITH CARDIOLOGY PENDING CALL BACK. PATIENT DOES HAVE HISTORY OF A-FIB. STABLE AT THIS TIME NURSE AND RT AT BEDSIDE.
--- NOTE | 2021-08-02 23:01 | NUR ---
SPOKE WITH HOSPITALIST IN REGARDS TO PHARMACY CALLING DUE TO INTERACTION WITH TYKOSIN AND NEED TO SPEAK IN REGARDS TO ADVERSE EFFECTS. INFORMED HOSPITALIST HR 77 ON TELE MONITOR AND BP 98/70. STATED TO WITHOLD MEDICATION AT THIS TIME. ALSO UPDATED PATIENT ON PLAN. CALL LIGHT WITHIN REACH PATIENT SHORNTESS OF BREATHE IMPROVED NO C/O CHEST PAIN NOTED. WILL CONTINUE TO MONITOR.
[2021-08-03] VITALS (7 sets, daily range): BP systolic 97–128; BP diastolic 66–82; PULSE 77–93; TEMP 97.5–98.6
--- NOTE | 2021-08-03 00:12 | NUR ---
PATIETN REPETIVE THROUGHOUT SHIFT INFORMING OF BEING COLD AND SHORNTESS OF BREATH, ASSESSED 02SAT 92% ON 5L VIA NC. ASSISTED WTIH ALETA YUNG SLIGHT EDEMA +1. NO C/O PAIN NOTED. PATIENT USING BEDSIDE COMMODE TO ASSIST WITH SOB AND LIMIT EXERTION. ASSISTED WITH SKIN TEAR CLEANSE AND APPLIED DRESSING. AROUND MIDNIGHT PATIENT SLEEPING 77HR ON THE TELE MONITOR. HOSPITALIST TERI STATED TO WITHOLD AMIODARONE AT THIS TIME AND CONTINUE TO MONITOR FOR ANY CHANGES. PATIENT DOES CALL MULTIPLE TIMES THROUGHOUT THE SHIFT. WILL CONTINUE TO MONITOR PATIENT FOR ANY CHANGES.
--- NOTE | 2021-08-03 00:43 | NUR ---
Called in at 0000 and recieved pt report from BLAYNE Schilling. Shift assessment performed and will continue to monitor pt and administer ordered medications per protocol.
--- NOTE | 2021-08-03 06:21 | NUR ---
Pt remains alert and oriented, resting currently, follows commands. Was told in report at 0000 that the pt had gone back into A-fib earlier in the evening, desatted to the upper 80's on 4L, and had low BP. HR was in the 140's. Pt is now in rate controlled a-fib, BP's running softer but stable. Pt denies dizziness/lightheadedness. Pt did report nausea this morning, notified provider and had prn zofran ordered, administered per orders and pt reported relief. Pt afebrile. Satting WNL on 5L NC currently. No SOB at this time. Respirations continue to run from 16-18 and are shallow. No stools overnight. Pt tolerating PO. Lung sounds are clear in the upper lobes, with some fine crackles in the left. 1+ edema noted in legs. Pedrito hose remain on. Small skin tear noted on left arm is dry/open to air. Pt currently resting and does not report any questions at this time, will continue to monitor.
--- NOTE | 2021-08-03 06:30 | NUR ---
Report received, assumed care for day shift.
[2021-08-03 06:51] LABS: BASO # 0.1 K/mm3 (0.0-0.2); BASO % 0.8 % (0.0-2.0); EOS # 0.1 K/mm3 (0.0-0.7); EOS % 1.4 % (0.0-4.0); GRAN # 5.3 K/mm3 (1.4-6.5); GRAN % 73.8 % (42.2-75.2); LYMPH # 0.9 K/mm3 (1.2-3.4); LYMPH % 12.9 % (20.0-51.0); MEAN CELL VOLUME 80 fl (80.0-100.0); MEAN CORPUSCULAR HGB CONC 32 g/dl (33.0-37.0); MEAN PLATELET VOLUME 10.1 fl (7.4-10.4); MONO # 0.8 K/mm3 (0.1-0.6); MONO % 10.7 % (1.7-9.3); PLATELET COUNT 125 K/mm3 (130-400); RED BLOOD COUNT 3.12 M/mm3 (4.10-5.30); REDCELL DISTRIBUTION WIDTH-CV 16.4 % (11.5-14.5)
[2021-08-03 06:52] LABS: HEMOGLOBIN 7.9 g/dl (12.5-16.0); MEAN CORPUSCULAR HEMOGLOBIN 25 pg (27-31)
[2021-08-03 07:12] LABS: ALBUMIN 2.7 gm/dL (3.4-4.8); CALCIUM 8.6 mg/dL (8.4-10.2); CREATININE, serum 0.63 mg/dL (0.57-1.11); PHOSPHOROUS 4.4 mg/dL (2.3-4.7); POTASSIUM 4.6 mmol/L (3.5-4.5)
--- NOTE | 2021-08-03 07:30 | NUR ---
Assessment complete. A&Ox4 but forgetful. Denies pain/nausea. States her shortness of breath is at baseline. VS currently stable. PICC to left upper arm flushes well with good blood return but does have some swelling. NC WNL. Tele reporting SR. O2@4L/NC. Plan of care discussed for this shift to include meds/NC/calling for questions/concerns. Verbalizes understanding. call light in reach. Will monitor.
--- NOTE | 2021-08-03 09:40 | NUR ---
Patient C/O nausea. Zofran given per dr order.
--- NOTE | 2021-08-03 10:28 | NUR ---
Ottoniel, at [facility], arrived to the hospital and met with the patient. Ottoniel states that they are able to accept the patient and that they should have a bed available tomorrow at their [place] location. If anything changes today, he will let us know. He states that the patient is agreeable to coming to [facility]. GERRI updated the clinical team. GERRI then attended clinical rounds. The patient confirms that she is agreeable to going to [facility] and is ready to get there. GERRI contacted and updated the patient's , Teto. Teto is also in agreement to the plan. He states that he is in [place] right now, but should be back home tonight. *Discharge plan: [facility]*
--- NOTE | 2021-08-03 10:59 | NUR ---
Patient called stating she was having pain from her throat down to her upper chest. States pain feels irritated from "tube they put down for my tests yesterday." States feels like scratches and burning. Denies nausea. Tylenol given per order. Will monitor.
--- NOTE | 2021-08-03 16:01 | NUR ---
Ottoniel, at [facility], reports that they are able to accept the patient tomorrow. They would like to do an earlier admission, due to [facility] having two possible transfers to their facility. GERRI contacted [facility] and secured transport for tomorrow at 0930. GERRI notified the PA. GERRI updated the patient and her , Teto. They are both in agreement to the plan. Teto plans to be at the hospital tomorrow at 0800 to visit and drop off some of the patient's belongings.
--- NOTE | 2021-08-03 16:36 | NUR ---
Patient had an uneventful day. C/O nausea x1 with good results from zofran. C/O pain to bilat legs-tylenol given. Tolerated PO. VS remained stable. O2@4L/NC-baseline. Plan for DC to [facility] in AM. Denies current needs. Call light in reach. Will monitor.
[2021-08-04 00:01] VITALS: BP 101/65; PULSE 80; TEMP 97.7
--- NOTE | 2021-08-04 02:13 | NUR ---
Pt alert and oriented, follows commands. Pt has reported multiple instances of headahce pain and "feeling like crap" this evening, in addition to nausea with no vomiting. PRN tylenol and prn zofran administered x2 with relief. Pt also repositioned. Pt is finally resting now. Shift assessment performed. Medications administered per orders and education provided. VS stable. BP running softer. Pt satting WNL on 5L NC. Shallows respirations in the 16-18 respiration range. Heart rythym is currently normal sinus. Pt denies chest pain/palpatations/dizziness. No vomiting. Pt does not appear to be in respiratory distress. No diaphoresis or dyspnea. Continuing with PO tikosyn. Pt tolerating PO pills well. Free water restriction enforced. Pt is very repetitive, but alert and oriented. Pt stated appeared to have some anxiety this evening until 0200. Stated she wanted to get out of the room and move around. Pt repositioned multiple times and is now resting. Pt does not report any questions at this time, will continue to monitor.
[2021-08-04 03:06] VITALS: BP 92/61; PULSE 80; TEMP 97.6
--- NOTE | 2021-08-04 04:03 | NUR ---
Pt began complaining of chest pain/nausea/and difficulty "catching my breath". VS stable. HR according to telemetry is NSR and 84. BP 98/68. 91% on 5L NC. Notified Dajuan Danielson APRN and the following phone order read back orders were made: 1. Stat EKG 2. Troponin lab now, 3 hr post initial, and 6 hour post initial 3. Order 12.5 mg phenergen IV once now 4. Order 2 mg morphine IV q4h prn Notified respiratory and lab of new changes. I put the orders in per provider and will follow the orders per protocol. Will continue to monitor the pt.
[2021-08-04 04:23] LABS: BASO # 0.1 K/mm3 (0.0-0.2); BASO % 0.8 % (0.0-2.0); EOS # 0.1 K/mm3 (0.0-0.7); EOS % 0.7 % (0.0-4.0); GRAN % 77.1 % (42.2-75.2); LYMPH % 10.9 % (20.0-51.0); MEAN CELL VOLUME 81 fl (80.0-100.0); MEAN CORPUSCULAR HGB CONC 32 g/dl (33.0-37.0); MEAN PLATELET VOLUME 10.6 fl (7.4-10.4); MONO # 0.9 K/mm3 (0.1-0.6); PLATELET COUNT 139 K/mm3 (130-400); REDCELL DISTRIBUTION WIDTH-CV 16.4 % (11.5-14.5)
[2021-08-04 04:34] LABS: HEMATOCRIT 25.8 % (37.0-47.0); HEMOGLOBIN 8.2 g/dl (12.5-16.0); MEAN CORPUSCULAR HEMOGLOBIN 26 pg (27-31)
[2021-08-04 04:52] LABS: ALBUMIN 2.9 gm/dL (3.4-4.8); CALCIUM 8.6 mg/dL (8.4-10.2); CREATININE, serum 0.71 mg/dL (0.57-1.11); PHOSPHOROUS 4.3 mg/dL (2.3-4.7)
[2021-08-04 05:08] LABS: TROPONIN-I 0.128 ng/mL (0.00-0.033)
--- NOTE | 2021-08-04 05:35 | NUR ---
Notified hospitalist Erum Graff APRN of criticial troponin value. No new orders/changes at this time, will continue to monitor pt.
--- NOTE | 2021-08-04 05:59 | NUR ---
Hospitalist notified me to contact the rehabilitation inspector to see if the pt should be started on an amiodarone gtt. Notified Dr. Subramanian, who said to hold off on the amiodarone gtt and that they will make changes when they see the pt this a.m. Will continue to monitor.
--- NOTE | 2021-08-04 06:08 | NUR ---
Pt currently resting. Alert and oriented to speech. VS stable. HR continues to remain in the 80's. Was reported from respiratory that the pt's EKG showed A-fib. Critical troponin of 0.128 was reported. Hospitalist and commercial lines account manager notified. Pt recieved prn zofran, tylenol overnight. Pt reported chest pain/SOB/nausea early this morning (see previous note) and prn morphine and one time phenergan was administered. Pt reports relief and is now resting. Pt currently denies chest pain/SOB. Satting WNL on 5L NC. Pt does not report any questions at this time, will continue to monitor.
[2021-08-04] MEDS ORDERED: ALDACTONE 25MG25 M1 PO (08:01)
[2021-08-04] MEDS ORDERED: TIKOSYN0.125 MG PO (08:01)
[2021-08-04] MEDS ORDERED: TYLENOL 500MG500 MG PO (08:02)
[2021-08-04] MEDS ORDERED: TESSALON P100 MG/CAP PO (08:03)
[2021-08-04] MEDS ORDERED: RESTORIL 1515 MG/CAP PO (08:04)
[2021-08-04 08:05] VITALS: BP 113/65; PULSE 79; TEMP 97.8
--- NOTE | 2021-08-04 09:10 | NUR ---
The patient is to discharge today, 08/04, to [facility] in [place]. Transportation was arranged at 0930, via [facility]. GERRI informed the patient, her , RN, and Ottoniel at [facility] of the time. GERRI presented the EMS Consent Form to the patient and her . The patient's signed the form. No additional needs at this time.
--- NOTE | 2021-08-04 10:57 | NUR ---
REPORT CALLED TO NURSE AT [facility] (Suhas). ALL QUESTIONS ANSWERED, NURSE INFORMED OF PATIENT STATUS.
== END 2021-08-04 10:59 | DRG 308 ==
LOC: MEDICAL 06-13 09:57 → ICU 07-25 08:14 → MEDICAL 07-25 08:14 → ICU 07-27 20:26 → MEDICAL 07-28 20:15
PROVIDERS: Internal Medicine; Internal Medicine Gastroenterology; Internal Medicine Pulmonary Disease; Physician Assistant; Registered Nurse; Student in an Organized Health Care Education/Training Program; ADMIT Internal Medicine Cardiovascular Disease
PROC: 0W993ZX Drainage of Right Pleural Cavity, Percutaneous Approach, Diagnostic (ICD-10-PCS; 2021-07-26)
PROC: 02HV33Z Insertion of Infusion Device into Superior Vena Cava, Percutaneous Approach (ICD-10-PCS; 2021-07-26)
PROC: 0W9B3ZX Drainage of Left Pleural Cavity, Percutaneous Approach, Diagnostic (ICD-10-PCS; 2021-07-27)
PROC: 0DB68ZX Excision of Stomach, Via Natural or Artificial Opening Endoscopic, Diagnostic (ICD-10-PCS; principal; 2021-07-29 14:00)
PROC: 0W993ZZ Drainage of Right Pleural Cavity, Percutaneous Approach (ICD-10-PCS; 2021-07-30)
DX: I48.0 Paroxysmal atrial fibrillation (principal); J96.21 Acute and chronic respiratory failure with hypoxia; E87.3 Alkalosis; E87.1 Hypo-osmolality and hyponatremia; I50.32 Chronic diastolic (congestive) heart failure; J91.8 Pleural effusion in other conditions classified elsewhere; J98.11 Atelectasis; E87.2 Acidosis; E44.0 Moderate protein-calorie malnutrition; D61.818 Other pancytopenia; J44.9 Chronic obstructive pulmonary disease, unspecified; I25.10 Atherosclerotic heart disease of native coronary artery without angina pectoris; R13.19 Other dysphagia; E87.6 Hypokalemia; E86.0 Dehydration; D50.9 Iron deficiency anemia, unspecified; E87.8 Other disorders of electrolyte and fluid balance, not elsewhere classified; I27.20 Pulmonary hypertension, unspecified; K21.9 Gastro-esophageal reflux disease without esophagitis; G89.29 Other chronic pain; M54.50 Low back pain, unspecified; I95.9 Hypotension, unspecified; J32.9 Chronic sinusitis, unspecified; K59.00 Constipation, unspecified; K20.90 Esophagitis, unspecified without bleeding; E87.5 Hyperkalemia; K44.9 Diaphragmatic hernia without obstruction or gangrene; I08.1 Rheumatic disorders of both mitral and tricuspid valves; I11.0 Hypertensive heart disease with heart failure; Z99.81 Dependence on supplemental oxygen; Z95.1 Presence of aortocoronary bypass graft; Z79.01 Long term (current) use of anticoagulants; Z79.82 Long term (current) use of aspirin; Z91.018 Allergy to other foods; Z87.891 Personal history of nicotine dependence; Z85.42 Personal history of malignant neoplasm of other parts of uterus; Z90.49 Acquired absence of other specified parts of digestive tract; Z90.710 Acquired absence of both cervix and uterus; Z88.1 Allergy status to other antibiotic agents; Z88.0 Allergy status to penicillin; Z88.8 Allergy status to other drugs, medicaments and biological substances; Z95.0 Presence of cardiac pacemaker; Z68.25 Body mass index [BMI] 25.0-25.9, adult; Z23 Encounter for immunization
CPT/HCPCS: 99223; 99232-AI; 99233-AI; 99239; C1751; C9113; J0282; J1940; J2270; J2405; J2550; J2704; J3475; J3480; J7030; J7040; J7060